=== PATIENT | female | born 1985 | race Caucasian/White ===

== ENCOUNTER 2020-11-13 16:13 | Emergency (ER) | payer OTHER, SELFPAY ==
[2020-11-13 16:18] VITALS: BP 139/68; PULSE 100; RESP 16; TEMP 36.5; O2SAT 100; BMI 29.1
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
== END 2020-11-13 18:15 | disposition home or self-care (01) ==
PROVIDERS: Emergency Provider Emergency Medicine Emergency Medical Services; PCP Internal Medicine
DX: S20.214A Contusion of middle front wall of thorax, initial encounter (principal); V43.62XA Car passenger injured in collision with other type car in traffic accident, initial encounter; Y93.89 Activity, other specified; Y92.414 Local residential or business street as the place of occurrence of the external cause; Y99.9 Unspecified external cause status
CPT/HCPCS: 99283

== ENCOUNTER 2023-12-23 15:26 | Outpatient (REF) | payer OTHER, SELFPAY ==
--- NOTE | ~2023-12-23 | XR_ITS ---
EXAMINATION: XR CHEST CLINICAL INFORMATION: Cough, history of asthma COMPARISON: 07/29/2016 TECHNIQUE: 2 views of the chest were obtained. FINDINGS: No focal consolidation, pulmonary edema, or pleural effusion. Stable cardiomediastinal silhouette. XR/XR chest 2V IMPRESSION: No acute cardiopulmonary findings. Electronically signed by: Darrian Giordano MD 12/23/2023 04:48 PM EDT RP
== END 2023-12-23 15:27 | disposition home or self-care (01) ==
LOC: HO.XRAY 15:26
PROVIDERS: PCP Internal Medicine; Visit Provider Physician Assistant Medical
DX: J45.909 Unspecified asthma, uncomplicated (principal)
CPT/HCPCS: 71046

== ENCOUNTER 2023-12-23 18:55 | Emergency (ER) | payer OTHER, SELFPAY ==
[2023-12-23 19:02] VITALS: BP 140/80; PULSE 87; RESP 24; TEMP 36.6; O2SAT 97; BMI 30.9
--- NOTE | 2023-12-23 19:08 | ED.GENADULT ---
HPI - General Adult General Chief complaint: Dyspnea Stated complaint: asthma Time Seen by Provider: 12/23/23 19:39 Source: patient Mode of arrival: ambulatory Limitations: no limitations History of Present Illness ED Provider: estephanie LLOYD narrative: Patient with history of remote asthma has not not used inhaler since age 13 woke up yesterday 03:00 cold sweats cough and wheeze and nasal congestion body aches was seen at urgent care earlier today COVID test was negative was given inhaler treatment came here with obvious wheezing Related Data Previous Rx's ?Medication ?Instructions ?Recorded naproxen 500 mg tablet 500 mg PO BID PRN pain #14 tabs 11/13/20 albuterol sulfate 90 mcg/actuation 2 puff inhalation Q6H PRN 12/24/23 aerosol inhaler shortness of breath or wheezing #8.5 grams prednisone 20 mg tablet 40 mg (2 x 20 mg) PO DAILY #10 tabs 12/24/23 Allergies Allergy/AdvReac Type Severity Reaction Status Date / Time No Known Allergies Allergy Verified 12/23/23 19:03 [No Known Allergies*] seasonal Allergy Unknown Itchy Eyes Uncoded 12/23/23 19:03 Review of Systems Review of Systems: Yes all other systems are reviewed and are negative PMFSH Past Medical History Medical History Depression Anxiety Asthma Social History Social History Smoked in Last 30 Days: No Use of substances other than those prescribed or required for medical reasons: No Advance Directives: No Advance Directives Information Provided: No Do you have a plan to hurt others: No Plan Patient : No Physical Exam ED Vital Signs: Vital Signs - 24 hr 12/23/23 19:02 12/23/23 19:32 12/23/23 20:00 Temperature 97.9 F 97.6 F Pulse Rate 87 72 97 Respiratory Rate 24 H 18 16 Blood Pressure 140/80 H 128/72 Pulse Oximetry 97 96 Oxygen Delivery Method Room Air Room Air 12/23/23 20:54 12/23/23 22:00 12/24/23 00:40 Temperature 97.8 F 98.4 F Pulse Rate 96 99 Respiratory Rate 13 17 18 Blood Pressure 112/60 111/57 L Pulse Oximetry 95 97 Oxygen Delivery Method Room Air Room Air 12/24/23 01:03 Temperature 98.4 F Pulse Rate 99 Respiratory Rate 18 Blood Pressure 111/57 L Pulse Oximetry 97 Oxygen Delivery Method Room Air BMI result Body Mass Index 30.9 Appearance: Alert. Oriented X3. No acute distress. Eyes: No pallor or icterus ENT: Pharynx normal. Oral Mucosa moist Neck: Normal inspection. Neck supple. CVS: Normal heart rate and rhythm. Pulses normal. Respiratory: No respiratory distress. Equal air entry bilateral, bilateral wheeze+++ Abdomen: Soft and nontender. Bowel sounds are present, Skin: Skin warm and dry. Normal skin color. Normal skin turgor. Extremities: No lower extremity edema. No calf tenderness Neuro: Oriented X 3. No motor deficit. Course Course Course Narrative: RME: Done by LAZ Brooke. Turning your female presents to ED for shortness of breath, coughing, needed congestion, body aches, and chills. Patient is sent from urgent care for asthma exacerbation. Patient has auditory expiratory wheezing. Patient is using accessory muscles. Lower extremity negative for swelling pitting edema or calf pain. Labs x-ray mac Solu-Medrol albuterol ordered. patient to be brought to the ED Medications Administered Discontinued Medications Generic Name Dose Route Start Last Admin Trade Name Freq PRN Reason Stop Dose Admin Albuterol Sulfate 7.5 mg/ 10 mg 12/23/23 19:26 12/23/23 19:32 Albuterol Sulfate 2.5 mg INHALE 12/23/23 19:27 10 mg ONCE ONE Administration Albuterol Sulfate 5 mg/ 0 mg 12/23/23 21:59 12/23/23 22:42 Albuterol/Ipratropium 3 ml INHALE 12/23/23 22:00 4 each ONCE ONE Administration Magnesium Sulfate 2 gm in 50 mls @ 25 mls/hr 12/23/23 19:07 12/23/23 20:41 Magnesium Sulfate/H2o IV 12/23/23 21:06 25 mls/hr ONCE ONE Administration Sodium Chloride 1,000 mls @ 999 mls/hr 12/23/23 20:08 12/23/23 20:41 Ns IV 12/23/23 21:08 999 mls/hr .Q1H1M ONE Administration Methylprednisolone Sodium Succinate 125 mg 12/23/23 19:07 12/23/23 20:41 Methylprednisolone Sod Succ 125 Mg/2 Ml Vial IVPUSH 12/23/23 19:08 125 mg ONCE ONE Administration Medical Decision Making Medical Decision Making [facility] Narrative: Patient's asthma came with acute exacerbation improved to nebulizing treatment prednisone COVID flu RSV negative saturating 95% at room air will discharge patient home Differential Diagnosis Differential Diagnoses: The differential diagnosis associated with the presentation includes Asthma/bronchitis/pneumonia Admission/Observation Consideration of admission/observation: Escalation of care including admission/observation considered Lab Data [facility] Lab Attestation statement: I reviewed the patient's lab results. 12/23/23 19:59 12/23/23 19:59 Labs: Lab Results 12/23/23 Range/Units 19:59 WBC 13.5 H (4.8-10.8) X10*3/uL RBC 4.57 (4.20-5.50) X10*6/uL Hgb 14.6 (12.0-16.0) g/dl Hct 41.8 (37.0-47.0) % MCV 91.5 (80.0-98.0) fL MCH 31.9 (27.0-33.0) pg MCHC 34.9 (31.0-35.0) g/dl RDW 12.0 (11.0-16.0) % Plt Count 233 (160-400) X10*3/uL MPV 9.6 (9.4-12.3) fL Immature Gran % (Auto) 0.3 (0.0-0.4) % Neut % (Auto) 83.0 H (45-73) % Lymph % (Auto) 10.6 L (20-40) % Cherry % (Auto) 4.8 (2-11) % Eos % (Auto) 1.0 (0-4) % Baso % (Auto) 0.3 (0-2) % Lymph # (Auto) 1.4 (1.2-4.9) X10*3/uL Cherry # (Auto) 0.7 (0.1-1.2) X10*3/uL Eos # (Auto) 0.1 (0.0-0.4) X10*3/uL Baso # (Auto) 0.0 (0.0-0.2) X10*3/uL Abs Immat Gran (auto) 0.04 H (0.00-0.03) X10*3/uL Absolute Neuts (auto) 11.3 H (2.0-8.3) x10*3/uL Absolute Nucleated RBC 0.000 (0.0-0.012) X10*3/uL Nucleated RBC % (auto) 0.0 (0.0-0.2) /100WBC Sodium 143 (135-145) mmol/L Potassium 3.1 L (3.3-5.1) mmol/L Chloride 110 H (96-108) mmol/L Carbon Dioxide 21 L (22-29) mmol/L Anion Gap 15 (12-20) BUN 11 (9-16) mg/dL Creatinine 0.72 (0.5-1.4) mg/dL Estim Creat Clear Calc 108.4 Estimated GFR > 60 Random Glucose 153 H (60-115) mg/dL Calcium 9.6 (8.4-10.2) mg/dL Total Bilirubin 0.6 (0.0-1.0) mg/dL AST 14 (5-31) U/L ALT 25 (0-31) U/L Alkaline Phosphatase 77 (39-117) U/L Total Protein 7.7 (6.5-8.0) g/dL Albumin 4.4 (3.5-5.0) g/dL Influenza Type A (PCR) NEGATIVE (Negative) Influenza Type B (PCR) NEGATIVE (Negative) RSV RNA Qual (PCR) NEGATIVE (Negative) SARS-CoV-2 RNA (RT-PCR) NEGATIVE (Negative) Independent Interpretation I performed an independent interpretation of an: Plain X-Ray Discharge Plan Discharge Clinical Impression: Asthma with exacerbation Patient Disposition: Home, Self-Care Instructions: Asthma (ED) Additional Instructions: Use inhaler 2 puffs every 4-6 hours as needed Prednisone as prescribed Follow with your PCP if not better Prescriptions: New prednisone 20 mg tablet 40 mg PO DAILY Qty: 10 0RF albuterol sulfate 90 mcg/actuation HFA aerosol inhaler 2 puff inhalation Q6H PRN (Reason: shortness of breath or wheezing) Qty: 8.5 0RF No Action naproxen 500 mg tablet 500 mg PO BID PRN (Reason: pain) Qty: 14 0RF Stand Alone Forms: Work/School Release Interventions: ED Discharge Assessment Last Done: 12/24/23 01:03 Discharge Date/Time: 12/24/23 01:03 Print Language: Liberian
[2023-12-23 19:32] VITALS: PULSE 72; RESP 18; O2SAT 94
[2023-12-23] MEDS: Albuterol Sulfate 7.5 MG, Albuterol Sulfate (0.083%) 2.5 MG 10 MG INHALE (19:32)
[2023-12-23 20:00] VITALS: BP 128/72; PULSE 97; RESP 16; TEMP 36.4; O2SAT 96
[2023-12-23 20:03] LABS: MANUAL DIFF FLAG NO
[2023-12-23 20:06] LABS: Basophils Percent Auto 0.3 % (0-2); Eosinophils Absolute Auto 0.1 X10*3/uL (0.0-0.4); Hematocrit 41.8 % (37.0-47.0); Hemoglobin 14.6 g/dl (12.0-16.0); Imm Gran Abs Auto 0.04 X10*3/uL (0.00-0.03); Imm Gran Pct Auto 0.3 % (0.0-0.4); Lymphocytes Absolute Auto 1.4 X10*3/uL (1.2-4.9); Lymphocytes Percent Auto 10.6 % (20-40); Mean Corpuscular HGB Conc 34.9 g/dl (31.0-35.0); Mean Corpuscular Hemoglobin 31.9 pg (27.0-33.0); Mean Corpuscular Volume 91.5 fL (80.0-98.0); Mean Platelet Volume 9.6 fL (9.4-12.3); Monocytes Absolute Auto 0.7 X10*3/uL (0.1-1.2); Monocytes Percent Auto 4.8 % (2-11); Neutrophils Absolute Auto 11.3 x10*3/uL (2.0-8.3); Platelet Count 233 X10*3/uL (160-400); Red Blood Count 4.57 X10*6/uL (4.20-5.50); White Blood Count 13.5 X10*3/uL (4.8-10.8)
[2023-12-23 20:33] LABS: Alanine Aminotransferase 25 U/L (0-31); Albumin Level 4.4 g/dL (3.5-5.0); Alkaline Phosphatase 77 U/L (39-117); Anion Gap 15 (12-20); Aspartate Amino Transferase 14 U/L (5-31); Bilirubin Total 0.6 mg/dL (0.0-1.0); Blood Urea Nitrogen 11 mg/dL (9-16); Calcium 9.6 mg/dL (8.4-10.2); Carbon Dioxide 21 mmol/L (22-29); Chloride 110 mmol/L (96-108); Creatinine Clr Calc Pharmacy 108.4; Estimated Glomerular Filt Rate > 60; Glucose Random 153 mg/dL (60-115); Potassium 3.1 mmol/L (3.3-5.1); Sodium 143 mmol/L (135-145); Total Protein 7.7 g/dL (6.5-8.0)
[2023-12-23] MEDS: Magnesium Sulfate/H2O 2 GM/50 ML PIGGYBACK IV (20:41)
[2023-12-23] MEDS: 0.9 % Sodium Chloride 1,000 ML 999 ML IV (20:41)
[2023-12-23] MEDS: methylPREDNISolone Sod Succ 125 MG/2 ML VIAL IVPUSH (20:41)
[2023-12-23 20:54] VITALS: RESP 13
[2023-12-23 21:18] LABS: Influenza A PCR NEGATIVE (Negative); Influenza B PCR NEGATIVE (Negative); Resp Syncy Virus RNA Qual PCR NEGATIVE (Negative); SARS COV2 PCR INHOUSE NEGATIVE (Negative)
[2023-12-23 22:00] VITALS: BP 112/60; PULSE 96; RESP 17; TEMP 36.6; O2SAT 95
[2023-12-23] MEDS: Albuterol Sulfate 5 MG, Albuterol/Iprat 2.5/0.5MG 3 ML 3 ML INHALE (22:42)
[2023-12-24 00:40] VITALS: BP 111/57; PULSE 99; RESP 18; TEMP 36.9; O2SAT 97
[2023-12-24 01:03] VITALS: BP 111/57; PULSE 99; RESP 18; TEMP 36.9; O2SAT 97
== END 2023-12-24 01:03 | disposition home or self-care (01) ==
PROVIDERS: Physician Assistant; Emergency Provider Internal Medicine; PCP Internal Medicine
DX: J45.901 Unspecified asthma with (acute) exacerbation (principal); R06.02 Shortness of breath; R05.9 Cough, unspecified; R09.81 Nasal congestion; Z03.818 Encounter for observation for suspected exposure to other biological agents ruled out; Z79.899 Other long term (current) drug therapy
CPT/HCPCS: 0241U; 36415; 80053; 85025; 94640; 96374; 96375; 99284; 99285; J2919; J3475